=== PATIENT | male | born 1940 | race Caucasian/White ===

== ENCOUNTER 2017-06-12 08:00 | Inpatient (IN) | payer OTHER ==
[~2017-06-12] VITALS: Ht 180.3 cm; Wt 79.4 kg
[2017-06-12] MEDS ORDERED: PANTOPRAZOLE SO40 MG PO (09:59)
[2017-06-12] MEDS ORDERED: TRETAL PO (09:59)
[2017-06-12] MEDS ORDERED: TRAMADOL HCL50 MG PO (10:00)
[2017-06-12] MEDS ORDERED: ZANTAC300 MG PO (10:00)
[2017-06-12] MEDS ORDERED: GABAPENTIN100 MG PO (10:00)
[2017-06-12] MEDS ORDERED: NORVASC10 MG PO (10:00)
[2017-06-12] MEDS ORDERED: APATATE LIQUID120 ML PO (10:01)
[2017-06-19] MEDS ORDERED: PERCOCET 5-3251 EACH PO (11:00)
[2017-06-19] MEDS ORDERED: AMOX-CLAV 875-1 EACH PO (11:00)
[2017-06-19] MEDS ORDERED: NEURONTIN800 MG PO (11:00)
[2017-06-19] MEDS ORDERED: COLACE100 MG PO (11:00)
[2017-06-19] MEDS ORDERED: CLONAZEPAM1 MG PO (11:00)
== END 2017-06-20 14:51 | disposition home or self-care (01) | DRG 460 ==
LOC: O/R 06-19 05:43 → PED 06-19 05:43 → SURH 06-19 08:00 → PED 06-19 17:54
PROVIDERS: Orthopaedic Surgery Orthopaedic Surgery of the Spine
PROC: 0ST20ZZ Resection of Lumbar Vertebral Disc, Open Approach (ICD-10-PCS; 2017-06-19)
PROC: 07DS3ZZ Extraction of Vertebral Bone Marrow, Percutaneous Approach (ICD-10-PCS; 2017-06-19)
PROC: 0SG00A0 Fusion of Lumbar Vertebral Joint with Interbody Fusion Device, Anterior Approach, Anterior Column, Open Approach (ICD-10-PCS; principal; 2017-06-19 12:15)
DX: M48.061 Spinal stenosis, lumbar region without neurogenic claudication (principal); M43.16 Spondylolisthesis, lumbar region; I10 Essential (primary) hypertension